=== PATIENT | female | born 1960 | race Caucasian/White ===

== ENCOUNTER 2020-04-14 12:59 | Inpatient (IN) | payer OTHER, SELFPAY ==
[2020-04-14] VITALS (20 sets, daily range): BP systolic 102–135; BP diastolic 67–91; PULSE 63–88; RESP 16–94; TEMP 36.3–37.1; O2SAT 20–100; BMI 32.9
--- NOTE | 2020-04-14 13:10 | ECG_ITS ---
Measurements Intervals [place] Rate: 67 P: 49 [place]: 166 QRS: 26 QRSD: 98 T: 72 QT: 395 QTc: 418 Interpretive Statements SINUS RHYTHM POSSIBLE LEFT ATRIAL ENLARGEMENT INFERIOR ST ELEVATION MYOCARDIAL INFARCT- ACUTE BASELINE WANDER- V1 ABNORMAL ECG Electronically Signed On 04-14-2020 13:58:08 CDT by Yoshi Fowler D.O.
--- NOTE | 2020-04-14 13:10 | ED.CHESTPAIN ---
HPI - Chest Pain General Chief Complaint: Chest Pain Stated Complaint: chest pain Time Seen by Provider: 04/14/20 13:09 Source: RN notes reviewed History of Present Illness HPI narrative: Patient presents emergency department from home for chest pain. Patient states pain began last night. Pain is located midsternal chest and does not radiate described as a pressure. Associate with shortness of breath. Denies any fevers or chills abdominal pain nausea vomiting or any other symptoms. Related Data Allergies Allergy/AdvReac Type Severity Reaction Status Date / Time aspirin [From Norgesic] Allergy Rash Verified 04/14/20 13:20 azithromycin Allergy Rash Verified 04/14/20 13:20 caffeine [From Norgesic] Allergy Rash Verified 04/14/20 13:20 orphenadrine [From Norgesic] Allergy Rash Verified 04/14/20 13:20 vancomycin Allergy Rash Verified 04/14/20 13:20 Review of Systems Review of Systems: Narrative: Gen.: Denies fevers or chills ENT: Denies congestion Respiratory: Denies shortness of breath or cough CV: See HPI GI: Denies abdominal pain nausea, emesis or diarrhea Musculoskeletal: Denies back pain or muscle pain Neuro: Denies numbness, tingling, weakness or focal weakness Skin: Denies rash Except as documented, all other systems reviewed and negative PMFSH Past Medical History Medical History (Updated 04/14/20 @ 13:40 by Luis Vazquez DO) Femoral-popliteal bypass graft occlusion, right Hypercholesterolemia Social History Social History (Updated 04/14/20 @ 13:16 by Luis Vazquez DO) Tobacco type: e-cigarettes/vaping Exam Narrative: Exam Narrative: APPEARANCE: No acute distress, nontoxic, resting in bed EYES: EOMI HEENT: Normocephalic, atraumatic, OMM RESPIRATORY: No respiratory distress Clear to auscultation bilaterally with no rhonchi wheezing or rales. CARDIOVASCULAR: Regular rate and rhythm without murmurs rubs or gallops. ABDOMINAL: Soft, nontender, nondistended, no rebound or guarding MUSCULOSKELETAl: Moves all extremities. No clubbing, cyanosis or edema. NEURO: Awake and alert. Following commands, speech normal, no focal deficits SKIN:: Warm, dry. No rashes lesions or abrasions PSYCHIATRIC: Normal affect/mood, Course Course Emergency Course: Discussed with Dr. jaquez presentation work-up. Plan for Hot Wire Glass Tube Cutter at this time. Request patient be given Brilinta 180 mg at this time Hot Wire Glass Tube Cutter team present as well as SUPERVISOR [employer] PASTE dominique lazcano Discussed with patient and family signs of acute DE need for Hot Wire Glass Tube Cutter in agreement at this time Vital Signs Vital signs: Vital Signs Temperature 98.7 F 04/14/20 13:05 Pulse Rate 88 04/14/20 13:05 Respiratory Rate 16 04/14/20 13:05 Pulse Oximetry 100 04/14/20 13:05 Temperature 98.7 F 04/14/20 13:05 Pulse Rate 88 04/14/20 13:05 Respiratory Rate 16 04/14/20 13:05 Pulse Oximetry 100 04/14/20 13:05 MDM - Chest Pain Lab Data Result diagrams: 04/14/20 13:15 04/14/20 13:15 ECG Data EKG #1: Interpretation: Sinus rhythm 67, SC is normal, axis normal, ST elevation in leads II, III and aVF with depression V1 V2 and lead I consistent with STEMI Critical Care Time Critical Care Time Critical Care Time: Yes Total Critical Care Time: 35 Discharge Plan Discharge Clinical Impression: ST elevation (STEMI) myocardial infarction Patient Disposition: Still a Patient Condition: Serious Interventions: Discharge Disposition Last Done: 04/14/20 13:33 IV Stop Time Documented Last Done: 04/14/20 13:33 Discharge Date/Time: 04/14/20 13:34
[2020-04-14 13:25] LABS: Basophils Absolute Auto 0.1 K/mm3 (0.0-0.1); Basophils Percent Auto 0.7 % (0.2-1.2); Eosinophils Absolute Auto 0.1 K/mm3 (0-0.3); Eosinophils Percent Auto 0.7 % (0-4.4); Hematocrit 41.4 % (37.0-47.0); Hemoglobin 13.7 g/dL (12.0-15.0); Immature Granulocyte Absolute 0.08 K/mm3 (0.00-0.031); Immature Granulocyte Percent A 0.5 % (0-0.5); Lymphocytes Absolute Auto 2.65 K/mm3 (0.9-3.2); Lymphocytes Percent Auto 16.1 % (18.3-44.2); Mean Corpuscular HGB Conc 33.1 g/dl (32-36); Mean Corpuscular Hemoglobin 29.5 pg (26-34); Mean Corpuscular Volume 89.2 fl (80-100); Mean Platelet Volume 11.5 fl (7.4-10.4); Monocytes Percent Auto 6.1 % (2.6-8.5); Neutrophils Absolute Auto 12.5 K/mm3 (1.3-6.7); Neutrophils Percent Auto 75.9 % (45.5-73.1); Platelet Count Result 306 k/mm3 (150-375); Red Blood Count 4.64 M/mm3 (4.2-5.4); White Blood Count 16.5 K/mm3 (4.5-10.0)
[2020-04-14] MEDS: TICAGRELOR 90 MG TABLET 180 MG (13:29)
--- NOTE | 2020-04-14 13:29 | PC.NURSE ---
STEMI activated and Cath team arrived. Pt given 325mg aspirin and 180mg brilinta per Dr gerard verbal orders. Left groin shaved, pads placed on pts chest. [facility]. VSS on ER departure.
[2020-04-14 13:36] LABS: INR 1.1; Partial Thromboplastin Time 29.5 SECONDS (22.3-36.8); Prothrombin Time 13.5 Seconds (11.1-14.7)
[2020-04-14 13:38] LABS: Alanine Aminotransferase 20 U/L (4-35); Albumin Level 4.6 g/dL (3.5-5.1); Alkaline Phosphatase 137 U/L (38-126); Aspartate Amino Transferase 86 U/L (14-36); Bilirubin,Total 0.3 mg/dL (0.2-1.3); Blood Urea Nitrogen 17 mg/dL (7-17); Calcium 9.4 mg/dL (8.4-10.2); Carbon Dioxide 23 mmol/L (22-30); Chloride 101 mmol/L (98-107); Cholesterol 193 mg/dL (0-200); Estimated CRCL calculation 90 ml/min; Estimated Glomerular Filt Rate > 60; Glucose 299 mg/dL (65-105); HDL Direct 37 mg/dL; Sodium 136 mmol/L (137-145); Triglycerides 298 mg/dL (<150)
[2020-04-14 13:49] LABS: LDL Cholesterol Direct 120 mg/dL
--- NOTE | 2020-04-14 14:39 | WPDCARDPROC ---
Cardiac Cath Procedure Note Date of procedure:: 04/14/20 Performing physician:: Alec Cruz MD Procedure Procedure note:: EMERGENT CARDIAC CATHETERIZATION AND PRIMARY PERCUTANEOUS CORONARY INTERVENTION REPORT DATE OF PROCEDURE: 04/14/2020 INDICATION FOR PROCEDURE: acute coronary syndrome -inferior ST-elevation [place] BRIEF CLINICAL HISTORY: 59-year-old female with peripheral artery disease with history of right fem-pop bypass surgery; diabetes mellitus on insulin, tobacco abuse. Patient was brought to [facility] emergency room with complaints of substernal chest discomfort that started about 15 hours prior to arrival. Patient had constant discomfort overnight. Her EKG showed sinus rhythm, ST elevation in the inferior leads with ST depression in leads V1 and V2. Cardiac catheterization lab was activated for primary PCI. She was given aspirin and loading dose of ticagrelor 180 mg in the emergency room. Benefits and risks of the procedure were discussed with the patient in depth, and informed consent was obtained prior to the procedure. Risks of the procedure include but are not limited to vascular complications including groin hematoma, retroperitoneal bleed, vessel perforation; periprocedural [place], cardiac arrhythmias, stroke, contrast induced nephropathy, and . After discussing all the benefits, risks and alternatives, patient was willing to proceed with the procedure. PROCEDURES PERFORMED: 1. Left heart catheterization- Selective left and right coronary angiogram; left ventriculogram and hemodynamic assessment 2. Percutaneous coronary intervention- Balloon angioplasty and stenting of totally occluded distal RCA using 3.5 x 24 mm everolimus eluting stent with good angiographic results and oriental orthodox of SANJUANA 3 flow. 3. Moderate sedation-CPT code 86977 MODERATE SEDATION: Midazolam 1 mg; fentanyl 25 mcg. Start time 1338 , Stop time 1427 ; Total [id number] time 49 minutes; Mary willard RN was trained observer for moderate sedation. ACCESS SITE: Left common femoral artery PROCEDURE NOTE: After obtaining informed consent, patient was brought to catheterization lab and prepped and draped in a usual sterile manner. After local anesthesia with lidocaine, left common femoral artery access was taken with micropuncture needle followed by insertion of a 5 Martiniquais sheath. there was difficulty in getting the access in the left common femoral artery due to the calcification . A radial sheath dilator was advanced with difficulty, followed by insertion of the 5 Martiniquais radial sheath, which was then upgraded to the 6 Martiniquais sheath over a 035 stiff wire. Selective left and right coronary angiogram was performed using 5 Martiniquais JL4 diagnostic and JR4 Guide catheters respectively. Orthogonal views were taken. After completion of primary PCI, a 5 Martiniquais pigtail catheter was advanced in the LV cavity and was flushed with normal saline. LV pressure measurement was performed. After this, left ventriculogram was performed. The catheter was flushed again, and gradient across the aortic valve was measured on the pullback of the catheter. The left common femoral artery access sheath was secured in place with sutures which were taken out in the holding area 2 hours after discontinuation of bivalirudin. The angiographic findings and details of intervention are given below. FINDINGS: LEFT MAIN CORONARY: The left main coronary artery is medium caliber, long vessel. There is mild diffuse narrowing in the mid-distal segment. The vessel bifurcates into LAD and left circumflex branches. LEFT ANTERIOR DESCENDING ARTERY: The LAD is a medium caliber vessel with diffuse calcification in the proximal segment; becomes tortuous diffusely calcified vessel in the mid segment and distal segment, and reaches the LV apex. There is about 50-60% stenosis in the mid segment just distal to the diagonal branch, and another high-grade about 70-80% focal stenosis in the m
--- NOTE | 2020-04-14 14:56 | PM.IMHP ---
H&P: HPI History of Present Illness Chief complaint: chest pain Narrative: Date of service- 04/14/2020 chief complaint: Chest pain for approximately 15 hours HPI: Sintia Montanez is a 59 year old female with peripheral artery disease with history of right fem-pop bypass surgery; diabetes mellitus on insulin, tobacco abuse. Patient was brought to [facility] emergency room with complaints of substernal chest discomfort that started about 15 hours prior to arrival . She described her chest pain as pressure-like sensation across the chest which was constant overnight. She denied associated symptoms including shortness of breath, palpitation, dizziness or syncope. Patient denies any prior cardiac history including clinical CT, however, she does have history of peripheral artery disease and history of right lower extremity vascular intervention including surgical revascularization. Her EKG on presentation which I personally evaluated showed sinus rhythm, ST elevation in the inferior leads with ST depression in leads V1 and V2. Cardiac catheterization lab was activated for primary PCI. She was given aspirin and loading dose of ticagrelor 180 mg in the emergency room. Emergent cardiac catheterization showed CAD- 100% thrombotic occlusion distal RCA ( infarct-related vessel); about 80% stenosis mid LAD; 30-40% stenosis mid LCX; LVEF about 60% with inferior severe hypokinesis to akinesis; LVEDP 15 mmHg. Patient underwent Primary PCI -SUGAR REFINER/ stenting of distal RCA total occlusion using a 3.5 x 24 mm [employer] Promus everolimus eluting stent with restorationist of SAN[place]NA 3 flow. She was chest pain-free after completion of intervention. Review of Systems Constitutional: Constitutional: Denies chills, Denies fatigue, Denies fever(s) and Denies headache(s) Eyes: Eyes: Reports as per HPI, Denies change in vision, Denies loss of vision and Denies eye pain ENT: Reports as per HPI, Reports Normal hearing present, Denies headache(s), Denies lip swelling, Denies epistaxis and Denies sore throat Cardiovascular: Cardiovascular: Reports as per HPI, Reports chest pain, Denies syncope, Denies irregular heart rhythm, Denies lightheadedness and Denies dyspnea Respiratory: Respiratory: Reports as per HPI, Denies cough, Denies dyspnea and Denies wheezing Gastrointestinal: Gastrointestinal: Reports as per HPI, Denies abdominal pain, Denies melena, Denies nausea and Denies vomiting Genitourinary: Genitourinary: Reports as per HPI Musculoskeletal: Musculoskeletal: Reports as per HPI, Denies myalgias, Denies muscle cramps and Denies muscle weakness Integumentary/Breasts: Skin/Breast: Reports as per HPI, Denies pruritus and Denies rash Neurologic: Reports as per HPI, Reports Normal hearing present, Denies behavioral changes, Denies syncope, Denies headache(s) and Denies loss of vision Psychiatric: Psychiatric: Reports as per HPI, Denies anxiety, Denies behavioral changes and Denies depression Endocrine: Endocrine: Reports as per HPI, Denies fatigue, Denies polydipsia and Denies polyuria Hematologic/Lymphatic: Hematologic/Lymphatic: Reports as per HPI, Denies easy bleeding and Denies easy bruising Allergic/Immunologic: Allergic/Immunologic: Reports as per HPI, Denies lip swelling and Denies wheezing PMFSH Past Medical History Medical History Femoral-popliteal bypass graft occlusion, right Hypercholesterolemia Surgical History Surgical History (Updated 04/14/20 @ 15:01 by Alec Cruz MD) H/O section History of cholecystectomy Family History Family History Mother Heart disease atrial fibrillation Social History Social History Tobacco type: e-cigarettes/vaping Alcohol intake: current Substance use: never Meds Home Medications and Allergies Allergies Allergy/Ad
[2020-04-14] MEDS: ONDANSETRON INJ 4 MG/2 ML VIAL 2 MG IV PUSH (15:47)
--- NOTE | 2020-04-14 16:15 | WPDCNINT ---
Assessment and Plan Assessment and plan (1) ST elevation (STEMI) myocardial infarction: Code(s): I21.3 - ST elevation (STEMI) myocardial infarction of unspecified site Status: Acute Assessment and Plan: Inferior STEMI S/P Primary PCI -AIRSET CASTER/ stenting of distal RCA total occlusion using a 3.5 x 24 mm [place] [employer] Promus everolimus eluting stent Monitor in ICU Dual antiplatelet therapy with aspirin and ticagrelor; Lipitor, metoprolol Plan to remove sheath later in the evening (2) Hypercholesterolemia: Code(s): E78.00 - Pure hypercholesterolemia, unspecified Status: Acute Assessment and Plan: Lipitor (3) Diabetes mellitus: Code(s): E11.9 - Type 2 diabetes mellitus without complications Status: Acute Assessment and Plan: Start sliding scale insulin Resume home Lantus (4) GERD (gastroesophageal reflux disease): Code(s): K21.9 - Gastro-esophageal reflux disease without esophagitis Status: Acute Assessment and Plan: Pepcid (5) Nausea: Code(s): R11.0 - Nausea Status: Acute Assessment and Plan: PRN Zofran DVT prophylaxis -Eliquis will be resumed as per cardiology. 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 was brought to [facility] emergency room with complaints of substernal chest discomfort that started about 15 hours prior to arrival . Her EKG on presentation ST elevation in the inferior leads with ST depression in leads V1 and V2. Code STEMI was called. She was given aspirin and loading dose of ticagrelor 180 mg in the emergency room. Emergent cardiac catheterization showed CAD- 100% thrombotic occlusion distal RCA ( infarct-related vessel); about 80% stenosis mid LAD; 30-40% stenosis mid LCX; LVEF about 60% with inferior severe hypokinesis to akinesis; LVEDP 15 mmHg. Patient underwent Primary PCI -AIRSET CASTER/ stenting of distal RCA total occlusion drug eluting stent with yazidi of SANJUANA 3 flow. She was chest pain-free after completion of intervention. Postprocedure patient was admitted to ICU for further management. Patient told me that pain started last night, 3 to 4/10 severe, pressure, located anterior chest diffuse, no radiation, felt like heartburn, no aggravating or relieving factors. Pain now has resolved completely after the procedure. Pain was associated with shortness of breath and did not resolve with Pepcid She denies any sick contacts, cough fever nausea vomiting or diarrhea. No change in sense of taste or smell. 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 Only other complaint is nausea with no vomiting Review of Systems Review of Systems: All systems reviewed & are unremarkable except as noted in HPI and below (HPI) PMFSH Past Medical History Medical History Femoral-popliteal bypass graft occlusion, right Hypercholesterolemia Surgical History Surgical History H/O section History of cholecystectomy Family History Family History Mother Heart disease atrial fibrillation Social History Social History Tobacco type: e-cigarettes/vaping Alcohol intake: current Substance use: never Meds Home Medications and Allergies Home Medications Medication Instructions Recorded Confirmed Type apixaban [Eliquis] 5 mg PO BID 04/14/20 04/14/20 History atorvastatin 80 mg PO HS 04/14/20 04/14/20 History dulaglutide [Trulicity] 1.5 mg SUBCUT WEEKLY 04/14/20
[2020-04-14 16:44] LABS: HIV 1/2 Ab P24 Ag Result Negative (Negative)
[2020-04-14 16:49] LABS: Hepatitis B Surface Antigen Negative (Negative)
[2020-04-14 16:50] LABS: Partial Thromboplastin Time 47.9 SECONDS (22.3-36.8)
[2020-04-14 18:04] LABS: Glucose Point of Care 240 (65-105)
[2020-04-14] MEDS: INSULIN ASPART (*BKC) 100 UNITS/ML SUB-Q (18:06)
[2020-04-14] MEDS: SODIUM CHLORIDE 0.9% IV 1,000 ML 125 ML IV CONT (18:07)
[2020-04-14] MEDS: SODIUM CHLORIDE 0.9% IV 250 ML 75 ML IV CONT (19:00)
--- NOTE | 2020-04-14 19:03 | PC.NURSE ---
This patient, Sintia Montanez, was admitted to IMU status, and placed in Intensive Care Unit-10 at 1452. Patient/family oriented to hospital policies and general routines including ID bracelet, bed and alarms, visiting hours, pain management, procedures, bathroom and other care routines, personal items, smoking policy, room service/diet, and visiting hours. Valuables list has been completed. Information on how to activate the Rapid Response Team has been discussed. Patient/Family are encouraged to report perceived risks to care and to ask questions if they do not understand what they are told or what they should do.
--- NOTE | 2020-04-14 19:03 | PC.NURSE ---
Sheath removed from left groin @ 1818. Pressure was help for 22 minutes. Site is dry/intact, no evidence of hematoma, pulse to left foot is palpable.
--- NOTE | 2020-04-14 19:18 | PC.NURSE ---
Patient arrived to ICU 10 @ 1452. Site was observed per protocol and remains dry/intact, no s/s hematoma, and left pedal pulse remains palpable.
[2020-04-14 20:07] LABS: Troponin I > 80.000 ng/mL (0.000-0.034)
[2020-04-14] MEDS: METOPROLOL TARTRATE 12.5 MG TABLET PO (22:58)
[2020-04-14] MEDS: FAMOTIDINE 20 MG TABLET PO (22:58)
[2020-04-14] MEDS: TICAGRELOR 90 MG TABLET PO (22:59)
[2020-04-14 23:05] LABS: Glucose Point of Care 226 (65-105)
[2020-04-15] VITALS (17 sets, daily range): BP systolic 89–114; BP diastolic 52–74; PULSE 66–75; RESP 12–24; TEMP 36.2–37.3; O2SAT 95–100
[2020-04-15] MEDS: NITROGLYCERIN SL 0.4 MG TABLET (01:25)
[2020-04-15] MEDS: NITROGLYCERIN OINTMENT 1 INCH DOSE TRANSDERM (01:30)
[2020-04-15 04:47] LABS: Blood Urea Nitrogen 15 mg/dL (7-17); Calcium 8.6 mg/dL (8.4-10.2); Carbon Dioxide 25 mmol/L (22-30); Chloride 103 mmol/L (98-107); Estimated CRCL calculation 108 ml/min; Estimated Glomerular Filt Rate > 60; Glucose 249 mg/dL (65-105); Potassium 4.1 mmol/L (3.4-5.0); Sodium 133 mmol/L (137-145)
[2020-04-15 07:57] LABS: Basophils Absolute Auto 0.1 K/mm3 (0.0-0.1); Basophils Percent Auto 0.5 % (0.2-1.2); Eosinophils Absolute Auto 0.2 K/mm3 (0-0.3); Eosinophils Percent Auto 1.6 % (0-4.4); Hematocrit 35.3 % (37.0-47.0); Hemoglobin 11.7 g/dL (12.0-15.0); Immature Granulocyte Absolute 0.07 K/mm3 (0.00-0.031); Immature Granulocyte Percent A 0.5 % (0-0.5); Lymphocytes Absolute Auto 2.97 K/mm3 (0.9-3.2); Lymphocytes Percent Auto 20.2 % (18.3-44.2); Mean Corpuscular HGB Conc 33.1 g/dl (32-36); Mean Corpuscular Hemoglobin 29.3 pg (26-34); Mean Corpuscular Volume 88.3 fl (80-100); Mean Platelet Volume 11.2 fl (7.4-10.4); Monocytes Absolute Auto 1.3 K/mm3 (0.1-0.6); Monocytes Percent Auto 9.1 % (2.6-8.5); Neutrophils Absolute Auto 10.1 K/mm3 (1.3-6.7); Neutrophils Percent Auto 68.1 % (45.5-73.1); Platelet Count Result 245 k/mm3 (150-375); Red Cell Distribution Width 12.8 % (11.5-14.5); White Blood Count 14.7 K/mm3 (4.5-10.0)
--- NOTE | 2020-04-15 08:00 | ECG_ITS ---
Measurements Intervals [place] Rate: 71 P: 44 DC: 164 QRS: 5 QRSD: 96 T: 0 QT: 391 QTc: 428 Interpretive Statements SINUS RHYTHM LOW QRS VOLTAGE IN PRECORDIAL LEADS INFERIOR INFARCT- PROBABLY RECENT ABNORMAL ECG Electronically Signed On 04-15-2020 11:55:51 CDT by Yoshi Fowler D.O.
--- NOTE | 2020-04-15 08:15 | WPDINTPN ---
Progress Note: A&P Assessment and Plan (1) ST elevation (STEMI) myocardial infarction: Code(s): I21.3 - ST elevation (STEMI) myocardial infarction of unspecified site Status: Acute Assessment and Plan: Inferior STEMI S/P Primary PCI -TAKE AWAY ATTENDANT/ stenting of distal RCA total occlusion using a 3.5 x 24 mm [place] [employer] Promus everolimus eluting stent Recurrent chest pain last night and EKG was unchanged from admission Patient is pain-free now. Continue nitroglycerin p.r.n. Will repeat EKG this morning Continue Dual antiplatelet therapy with aspirin and ticagrelor; Lipitor, metoprolol (2) Hypercholesterolemia: Code(s): E78.00 - Pure hypercholesterolemia, unspecified Status: Acute Assessment and Plan: Lipitor (3) Diabetes mellitus: Code(s): E11.9 - Type 2 diabetes mellitus without complications Status: Acute Assessment and Plan: Start sliding scale insulin Continue home Lantus (4) GERD (gastroesophageal reflux disease): Code(s): K21.9 - Gastro-esophageal reflux disease without esophagitis Status: Acute Assessment and Plan: Pepcid (5) Nausea: Code(s): R11.0 - Nausea Status: Acute Assessment and Plan: Appears to have resolved. PRN Zofran DVT prophylaxis -Eliquis will be resumed today if okay with cardiology. SCDs for now Code Status - Full Code Subjective Date/time seen: 04/15/20 0815 Patient feels better this morning. She had an episode of pain in her back last night around 11:00 p.m.. It was 2 to 3/10 severe, different from her chest pain, it was relieved by nitro pill. EKG was done at that time. Patient denies any pain at this point. Does feel short of breath when she takes a deep breath but not at rest. No other complaint at this time Denies fever chills chest pain cough abdominal pain nausea vomiting diarrhea headache Review of Systems Review of Systems: All systems reviewed & are unremarkable except as noted in HPI and below (HPI) Exam Narrative: Exam Narrative: General: Pt is alert awake and in NAD Lungs/Chest: Trachea central Clear BS B/L, No crackles or wheezing. Cardiac: RRR. Normal S1 S2. No murmurs Circulation: Pedal pulses are decreased bilaterally but present and symmetrical. Left femoral sheath has been removed, no hematoma or swelling noticed. She does feel some discomfort on deep palpation of that site Abdomen: Normal bowel sounds.. Soft. NT. ND. Extremities: No clubbing, cyanosis or edema. Warm : [place] in place Neurologic: Follows commands. Moves all 4 extremities PERRL Skin: No Rash scar from past femoral bypass in the right groin Objective Data Vital Signs Vital Signs: Vital Signs - 24 hr 04/14/20 13:05 04/14/20 14:52 04/14/20 15:00 Temperature 37.1 C 36.3 C L Pulse Rate 88 68 68 Respiratory Rate 16 94 H 18 Blood Pressure 121/75 112/71 Pulse Oximetry 100 20 L 97 04/14/20 15:15 04/14/20 15:30 04/14/20 15:45 Temperature Pulse Rate 69 67 68 Respiratory Rate 20 18 18 Blood Pressure 114/72 110/72 116/70 Pulse Oximetry 95 95 93 04/14/20 16:00 04/14/20 16:15 04/14/20 16:45 Temperature Pulse Rate 67 68 66 Respiratory Rate 20 21 H 18 Blood Pressure 120/91 H 135/78 123/70 Pulse Oximetry 97 92 94 04/14/20 17:45 04/14/20 18:00 04/14/20 18:45 Temperature Pulse Rate 69 66 68 Respiratory Rate 18 16 19 Blood Pressure 121/70 124/71 122/73 Pulse Oximetry 96 97 96 04/14/20 19:00 04/14/20 19:45 04/14/20 20:00 Temperature 36.7 C Pulse Rate 68 65 71 Respiratory Rate 18 21 H 17 Blood Pressure 107/84 113/73 121/67 Pulse Oximetry 97 93 100 04/14/20 20:30 04/14/20 21:00 04/14/20 22:00 Temperature Pulse Rate 71 68 72 Respiratory Rate 17 20 16 Blood Pressure 102/68 122/75 110/68 Pulse Oximetry 97 100 04/14/20 22:58 04/14/20 23:00 04/15/20 00:00 Temperature 36.7 C Pulse Rate 70 70 70 Respiratory Rate 20 22 H Blood Pressure 108/69 103/69 Pulse O
[2020-04-15] MEDS: INSULIN GLARGINE (*BKC) 100 UNITS/ML 40 UNITS SUB-Q (08:35)
[2020-04-15 08:36] LABS: Glucose Point of Care 216 (65-105)
[2020-04-15] MEDS: INSULIN ASPART (*BKC) 100 UNITS/ML SUB-Q ×2 (08:37→12:24)
--- NOTE | 2020-04-15 09:00 | ECHO_ITS ---
Patient Info Name: Sintia Montanez Age: 59 years : 1960 Gender: Female Ht: 68 in Wt: 216 lbs BSA: 2.20 m2 HR: 66 bpm BP: 101 / 64 mmHg Heart Rhythm: Sinus Rhythm Technical Quality: Good Exam Date: 04/15/2020 10:40 AM Exam Location: [facility] Patient Status: Inpatient Admit Date: 04/14/2020 Staff Ordering Physician: Nel Hemphill APRN Bi Tri Operator: Hermilo Posey, CLAUDIACS, RT Attending Provider: Alec Cruz MD Referring Physician: Joby PEARSON; Exam Type: CA echo doppler color flow Study Info Indications I21.3 - ST elevation (STEMI) myocardial infarction of unspecified site Complete two-dimensional, color flow and Doppler transthoracic echocardiogram is performed. Summary 1. Normal left ventricular size with mild concentric left ventricular hypertrophy. The overall left ventricular function is good with an estimated ejection fraction 55-60%. However the basal inferior septal segment appears akinetic. Diastolic dysfunction, grade 1, is present. The average global longitudinal strain is-60% which is mildly low suggesting a degree of systolic dysfunction. 2. There is mild mitral valve regurgitation. 3. No pulmonary hypertension, estimated pulmonary arterial systolic pressure is 28 mmHg. 4. Normal sinus rhythm. Left Ventricle Left ventricular chamber dimension is normal. Left ventricular systolic function is normal, estimated at 55-60%. There is mildly increased left ventricular wall thickness. Left ventricular septal wall motion is normal. The left ventricular diastolic function is grade I diastolic dysfunction. Global longitudinal strain is mildly elevated at 16 %. Right Ventricle Right ventricular chamber dimension is normal. Right ventricular systolic function is normal. Left Atria Left atrial chamber dimension is normal. Right Atria Right atrial chamber dimension is normal. Aortic Valve The aortic valve is trileaflet. There is no aortic valve sclerosis. There is no aortic valve stenosis. There is no aortic valve regurgitation. Pulmonic Valve The pulmonic valve is normal. There is no pulmonic valve stenosis. There is no pulmonic regurgitation. Mitral Valve The mitral valve has normal leaflets. There is no mitral valve stenosis. There is mild mitral valve regurgitation. Tricuspid Valve The tricuspid valve leaflets are normal. There is no significant tricuspid valve stenosis. There is trace tricuspid valve regurgitation. No pulmonary hypertension, estimated pulmonary arterial systolic pressure is 28 mmHg. Pericardium/Pleural The pericardium appears normal. There is no pericardial effusion. Inferior Vena Cava Dilated inferior vena cava with >50% collapse upon inspiration consistent with Empty right atrial pressure, Empty. Aorta The aortic root size at the sinus of Valsalva is normal. The prox ascending aorta size is normal. Left Ventricular Outflow Tract Name Value Normal LVOT 2D LVOT Diameter 2.1 cm LVOT Doppler LVOT Peak Gradient 2 mmHg LVOT Mean Gradient 1 mmHg LVOT VTI
[2020-04-15] MEDS: ATORVASTATIN 40 MG TABLET 80 MG PO (09:17)
[2020-04-15] MEDS: ASPIRIN 81 MG ENTERIC TABLET PO (09:17)
[2020-04-15] MEDS: DULoxetine HCL 60 MG CAPSULE.DR PO (09:18)
[2020-04-15] MEDS: lisinopriL 10 MG TABLET PO (09:18)
[2020-04-15] MEDS: FAMOTIDINE 20 MG TABLET PO ×2 (09:18→22:03)
[2020-04-15] MEDS: METOPROLOL TARTRATE 12.5 MG TABLET PO ×2 (09:19→22:03)
[2020-04-15] MEDS: TICAGRELOR 90 MG TABLET PO ×2 (09:19→22:03)
[2020-04-15 12:24] LABS: Glucose Point of Care 227 (65-105)
--- NOTE | 2020-04-15 14:21 | PM.PNCARD ---
Progress Note: A&P Assessment and Plan (1) Femoral-popliteal bypass graft occlusion, right: Code(s): T82.898A - Other specified complication of vascular prosthetic devices, implants and grafts, initial encounter Status: Acute (2) ST elevation (STEMI) myocardial infarction: Code(s): I21.3 - ST elevation (STEMI) myocardial infarction of unspecified site Status: Acute Assessment and Plan: Peripheral artery disease with history of right fem-pop bypass surgery; diabetes mellitus on insulin, tobacco abuse. Presented with 15 hour history of chest pain, found to have inferior ST-elevation [place]. On coronary angiogram, she was found to have totally occluded distal RCA which is infarct-related vessel; high-grade stenosis in the mid RCA, LVEF about 60% with inferior wall severe hypokinesis to akinesis. She underwent primary PCI/TAMIKA x1 distal RCA with rastafarian of flow by Dr Cruz on 04/14/2020. She had chest pain overnight. Nitroglycerin paste was applied and she was pain-free. EKGs were unchanged. Troponin is trending down this morning. Peak was greater than 80. Continue dual antiplatelet therapy with aspirin and ticagrelor; beta-rebecca, ARB (has cough with lisinopril) and high intensity statin. Will discontinue lisinopril and start losartan 25 mg daily. Risk factor modification including complete smoking cessation. States that she vapes with no nicotine. Stage intervention on mid LAD in near future. Timing will be discussed with Dr Cruz. ECHO:Normal left ventricular size with mild concentric left ventricular hypertrophy. The overall left ventricular function is good with an estimated ejection fraction 55-60%. However the basal inferior septal segment appears akinetic. Diastolic dysfunction, grade 1, is present. The average global longitudinal strain is-60% which is mildly low suggesting a degree of systolic dysfunction. Mild mitral valve regurgitation. No pulmonary hypertension, estimated pulmonary arterial systolic pressure is 28 mmHg. Transfer to IMU. Increase activity. BMP in the morning. Also check EKG. Subjective Date/time seen: 04/15/20 15:55 Interval history: Follow-up for: Inferior ST-elevation myocardial infarction 04/14/2020 with drug-eluting stent to the distal right coronary artery, residual 80% lesion in the LAD, preserved ejection fraction, peripheral artery disease with history of right fem-pop bypass surgery; diabetes mellitus on insulin, tobacco abuse Date of service: 04/15/2020 Subjective: No further chest discomfort. Denied shortness of breath or lightheadedness. Left groin site is tender. Review of Systems Constitutional: Constitutional: Denies chills, Denies fatigue, Denies fever(s) and Denies headache(s) Eyes: Eyes: Denies change in vision, Denies loss of vision and Denies eye pain ENT: Reports Normal hearing present, Denies headache(s), Denies lip swelling, Denies epistaxis and Denies sore throat Cardiovascular: Cardiovascular: Denies chest pain, Denies syncope, Denies irregular heart rhythm, Denies lightheadedness and Denies dyspnea Respiratory: Respiratory: Denies cough, Denies dyspnea and Denies wheezing Gastrointestinal: Gastrointestinal: Denies abdominal pain, Denies melena, Denies nausea and Denies vomiting Genitourinary: Genitourinary: Denies hematuria Musculoskeletal: Musculoskeletal: Denies myalgias, Denies muscle cramps and Denies muscle weakness Integumentary/Breasts: Skin/Breast: Denies pruritus and Denies rash Neurologic: Reports Normal hearing present, Denies behavioral changes, Denies syncope, Denies headache(s) and Denies loss of vision Psychiatric: Psychiatric: Denies anxiety, Denies behavioral changes and Denies depression Endocrine: Endocrine: Denies fatigue, Denies polydipsia and Denies polyuria Hematologic/Lymphatic: Hematologic/Lymphatic: Denies easy bleeding and Denies easy bruising Allergic/Immunologic: Allergic/Immuno
--- NOTE | 2020-04-15 15:03 | PC.NURSE ---
This patient, Sintia Montanez, was transferred to [[facility] ] on 04/15/20 at 1445. Personal belongings sent with patient. Belongings list checked and signed with receiving [ lynne, imu with purse and belongings bag, phone and protection officer]. Report given to [ aquiles guadarrama rn]. Appropriate documentation sent with patient.
[2020-04-15 16:56] LABS: Glucose Point of Care 197 (65-105)
[2020-04-16] VITALS (10 sets, daily range): BP systolic 98–102; BP diastolic 51–66; PULSE 65–99; RESP 16–20; TEMP 35.9–36.4; O2SAT 100
[2020-04-16 05:26] LABS: Blood Urea Nitrogen 17 mg/dL (7-17); Calcium 8.6 mg/dL (8.4-10.2); Carbon Dioxide 25 mmol/L (22-30); Chloride 106 mmol/L (98-107); Estimated CRCL calculation 91 ml/min; Estimated Glomerular Filt Rate > 60; Glucose 172 mg/dL (65-105); Potassium 3.9 mmol/L (3.4-5.0); Sodium 137 mmol/L (137-145)
--- NOTE | 2020-04-16 08:00 | ECG_ITS ---
Measurements Intervals [place] Rate: 73 P: 49 ME: 168 QRS: 18 QRSD: 98 T: -43 QT: 397 QTc: 440 Interpretive Statements SINUS RHYTHM LOW QRS VOLTAGE IN PRECORDIAL LEADS BORDERLINE R WAVE PROGRESSION, ANTERIOR LEADS INFERIOR INFARCT, PROABLY RECENT ABNORMAL ECG Electronically Signed On 04-16-2020 11:11:02 CDT by Yoshi Fowler D.O.
[2020-04-16] MEDS: ASPIRIN 81 MG ENTERIC TABLET PO (09:30)
[2020-04-16] MEDS: FAMOTIDINE 20 MG TABLET PO (09:31)
[2020-04-16] MEDS: ATORVASTATIN 40 MG TABLET 80 MG PO (09:31)
[2020-04-16] MEDS: DULoxetine HCL 60 MG CAPSULE.DR PO (09:31)
[2020-04-16] MEDS: TICAGRELOR 90 MG TABLET PO (09:33)
[2020-04-16] MEDS: METOPROLOL TARTRATE 12.5 MG TABLET PO (09:33)
[2020-04-16] MEDS: INSULIN GLARGINE (*BKC) 100 UNITS/ML 40 UNITS SUB-Q (09:36)
--- NOTE | 2020-04-16 12:55 | PM.DS ---
DS: Admitting Diagnosis Admitting Diagnosis Admitting Diagnosis: STEMI DS: Discharge Diagnosis Discharge Diagnosis (1) ST elevation (STEMI) myocardial infarction: Qualifiers: Involved coronary artery: right coronary artery Qualified Code(s): I21.11 - ST elevation (STEMI) myocardial infarction involving right coronary artery Code(s): I21.3 - ST elevation (STEMI) myocardial infarction of unspecified site Status: Acute Assessment and Plan: Presented with 15 hour history of chest pain, found to have inferior ST-elevation [place]. On coronary angiogram, she was found to have totally occluded distal RCA which is infarct-related vessel; high-grade stenosis in the mid RCA, LVEF about 60% with inferior wall severe hypokinesis to akinesis. She underwent primary PCI/TAMIKA x1 distal RCA with voodoo of flow by Dr Cruz on 04/14/2020. No further chest pain. Vital signs are stable. She was ambulating without difficulty. radiation monitor revealed no arrhythmias. She has an occlusion in her LAD which will need to be addressed. Dr Cruz was contacted. He would like to do this at [facility] as she may need arthrectomy. Scheduled for May 06, 2020. 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 (2) Femoral-popliteal bypass graft occlusion, right: Qualifiers: Encounter type: subsequent encounter Qualified Code(s): T82.898D - Other specified complication of vascular prosthetic devices, implants and grafts, subsequent encounter Code(s): T82.898A - Other specified complication of vascular prosthetic devices, implants and grafts, initial encounter Status: Acute Assessment and Plan: She is to follow-up with her vascular surgeon. DS: Summary Hospital Course Hospital Course: 59-year-old with a history of peripheral artery disease with history of right fem-pop bypass surgery; diabetes mellitus on insulin, tobacco abuse. presented with 15 hour history of chest pain on 04/14/2020, found to have inferior ST-elevation [place]. On coronary angiogram, she was found to have totally occluded distal RCA which is infarct-related vessel; high-grade stenosis in the mid RCA, LVEF about 60% with inferior wall severe hypokinesis to akinesis. She underwent primary PCI/TAMIKA x1 distal RCA with voodoo of flow by Dr Cruz on 04/14/2020. she was also found to have an 80% stenosis in the mid LAD which will be addressed in a staged fashion. She was started on aspirin and Brilinta, beta-rebecca and lisinopril. She had chest pain overnight after her procedure. Nitroglycerin paste was applied and she was pain-free. EKGs were unchanged. Troponin trended down. Peak was greater than 80. ECHO:Normal left ventricular size with mild concentric left ventricular hypertrophy. The overall left ventricular function is good with an estimated ejection fraction 55-60%. However the basal inferior septal segment appears akinetic. Diastolic dysfunction, grade 1, is present. The average global longitudinal strain is-60% which is mildly low suggesting a degree of systolic dysfunction. Mild mitral valve regurgitation. No pulmonary hypertension, estimated pulmonary arterial systolic pressure is 28 mmHg. She was continued on dual anti-platelet therapy with aspirin and ticagrelor; metoprolol tartrate and atorvastatin. Lisinopril was changed to losartan as she has experienced a cough with lisinopril in the past. Risk factor modification including complete smoking cessation was discussed.. States that she vapes with no nicotine. Intervention on her mid LAD is scheduled for May 06, 2020. She was given directions and instructions. Discharged home 04/16/2020 in stable and pain-free condition. This document was completed by using [employer] Direct speech recognition software, therefore, checkout supervisor variances may occur.
[2020-04-20 19:25] LABS: Hepatitis C RNA, Quant PCR <15 IU/mL
== END 2020-04-16 14:00 | disposition home or self-care (01) | DRG 247 ==
LOC: ANHED 13:12 → ANHICU 13:16 → ANHIMU 04-15 15:00
PROVIDERS: Internal Medicine; Internal Medicine Cardiovascular Disease; Nurse Practitioner Adult Health; Admitting Provider Internal Medicine Cardiovascular Disease; Emergency Provider Emergency Medicine; PCP Internal Medicine Geriatric Medicine; Visit Provider Internal Medicine Cardiovascular Disease
PROC: 4A023N7 Measurement of Cardiac Sampling and Pressure, Left Heart, Percutaneous Approach (ICD-10-PCS; CPT 93452; principal; 2020-04-14 13:30)
PROC: 027034Z Dilation of Coronary Artery, One Artery with Drug-eluting Intraluminal Device, Percutaneous Approach (ICD-10-PCS; 2020-04-14 13:30)
DX: I21.19 ST elevation (STEMI) myocardial infarction involving other coronary artery of inferior wall (principal); E78.00 Pure hypercholesterolemia, unspecified; I25.10 Atherosclerotic heart disease of native coronary artery without angina pectoris; K21.9 Gastro-esophageal reflux disease without esophagitis; E11.9 Type 2 diabetes mellitus without complications; Z79.4 Long term (current) use of insulin; R11.0 Nausea; Z72.0 Tobacco use
CPT/HCPCS: 36415; 80048; 80053; 80061; 84484; 85025; 85610; 85730; 86703; 86850; 86900; 86901; 87340; 87522; 93005; 93306; 93458; 99291; A9270; C1725; C1769; C1874; C1887; C1894; C9606; G0432; J1644; J1815; J2250; J2405; J3010; J7030; J7050

== ENCOUNTER 2020-05-03 07:57 | Outpatient (CLI) | payer OTHER, SELFPAY ==
[2020-05-03 08:45] LABS: Basophils Absolute Auto 0.1 K/mm3 (0.0-0.1); Basophils Percent Auto 0.8 % (0.2-1.2); Eosinophils Absolute Auto 0.4 K/mm3 (0-0.3); Eosinophils Percent Auto 3.3 % (0-4.4); Hematocrit 38.2 % (37.0-47.0); Hemoglobin 12.4 g/dL (12.0-15.0); Immature Granulocyte Absolute 0.07 K/mm3 (0.00-0.031); Immature Granulocyte Percent A 0.6 % (0-0.5); Lymphocytes Absolute Auto 2.58 K/mm3 (0.9-3.2); Lymphocytes Percent Auto 22.7 % (18.3-44.2); Mean Corpuscular HGB Conc 32.5 g/dl (32-36); Mean Corpuscular Hemoglobin 29.5 pg (26-34); Mean Corpuscular Volume 90.7 fl (80-100); Mean Platelet Volume 11.1 fl (7.4-10.4); Monocytes Absolute Auto 0.8 K/mm3 (0.1-0.6); Monocytes Percent Auto 7.3 % (2.6-8.5); Neutrophils Absolute Auto 7.4 K/mm3 (1.3-6.7); Neutrophils Percent Auto 65.3 % (45.5-73.1); Platelet Count Result 318 k/mm3 (150-375); Red Blood Count 4.21 M/mm3 (4.2-5.4); Red Cell Distribution Width 13.2 % (11.5-14.5); White Blood Count 11.4 K/mm3 (4.5-10.0)
[2020-05-03 09:03] LABS: Alanine Aminotransferase 12 U/L (4-35); Alkaline Phosphatase 122 U/L (38-126); Anion Gap 13.1 mmol/L (7-16); Aspartate Amino Transferase 16 U/L (14-36); Bilirubin,Total 0.3 mg/dL (0.2-1.3); Blood Urea Nitrogen 17 mg/dL (7-17); Calcium 8.6 mg/dL (8.4-10.2); Carbon Dioxide 24 mmol/L (22-30); Chloride 106 mmol/L (98-107); Estimated Glomerular Filt Rate > 60; Glucose 230 mg/dL (65-105); Potassium 4.1 mmol/L (3.4-5.0); Sodium 139 mmol/L (137-145)
== END 2020-05-03 07:58 | disposition home or self-care (01) ==
PROVIDERS: PCP Internal Medicine Geriatric Medicine; Visit Provider Internal Medicine Cardiovascular Disease
DX: Z01.812 Encounter for preprocedural laboratory examination (principal)
CPT/HCPCS: 36415; 80053; 85025

== ENCOUNTER 2020-11-01 16:30 | Outpatient (RCR) | payer OTHER, SELFPAY ==
[2020-08-24 15:32] VITALS: BP 116/60; PULSE 73; RESP 16; TEMP 36.8; O2SAT 99
--- NOTE | 2020-10-04 14:45 | PCCPR ---
Pt called to inform of absence. 10/04/2020
--- NOTE | 2020-11-08 14:25 | PCCPR ---
Sintia request to discharge one week before her schedule time, due to work schedule and obligations.
== END 2020-11-08 14:26 | disposition home or self-care (01) ==
LOC: ANHCPREHAB 16:30
PROVIDERS: PCP Internal Medicine Geriatric Medicine; Visit Provider Internal Medicine Cardiovascular Disease
DX: Z95.5 Presence of coronary angioplasty implant and graft (principal)
CPT/HCPCS: 93798

== ENCOUNTER → 2021-02-24 11:15 | Outpatient (CLI) | payer OTHER, SELFPAY ==
--- NOTE | ~2021-02-24 | MM_ITS ---
EXAMINATION: MM screening [facility] BI w sabrina HISTORY: Screening mammogram TECHNIQUE: Craniocaudal and mediolateral oblique 3-D tomosynthesis images were obtained and synthetic 2-D images were generated. CAD analysis was submitted and interpreted. COMPARISON: No prior mammogram is available for comparison at this institution. BREAST PARENCHYMAL COMPOSITION: There are scattered areas of fibroglandular density. FINDINGS: Bilateral benign small intramammary lymph nodes. There is no evidence of suspicious mass, c alcification, or architectural distortion to suggest malignancy in either breast. There has been no s uspicious interval change. IMPRESSION: 1. No mammographic evidence of malignancy. 2. Recommend routine screening mammography in one year. BI-RADS Category 2: Benign finding(s). Reviewed, dictated and finalized at location A.
== END ==
PROVIDERS: PCP Internal Medicine Geriatric Medicine; Visit Provider Internal Medicine Geriatric Medicine
DX: Z12.31 Encounter for screening mammogram for malignant neoplasm of breast (principal)
CPT/HCPCS: 77063; 77067

== ENCOUNTER → 2021-12-27 13:17 | Outpatient (CLI) | payer BC, SELFPAY ==
--- NOTE | ~2021-12-27 | DEXA_ITS ---
Bone Density Report Name: DARSHAN DELGADO Age: 61 Sex: Female Ethnicity: White Date of : 1960 Indication: postmenopausal; screening for osteoporosis; height loss; Referring Provider: Ana Cristina, Becky Study: Bone densitometry was performed. Exam Date: December 27, 2021 Accession number: [id number] Bone Density: Region BMD T-score Z-score Classification AP Spine (L1-L4) 0.955 -0.8 0.5 Normal Femoral Neck (Left) 0.662 -1.7 -0.4 Osteopenia Total Hip (Left) 0.940 0.0 0.9 Normal Femoral Neck (Right) 0.671 -1.6 -0.3 Osteopenia Total Hip (Right) 0.873 -0.6 0.3 Normal Total Hip Mean 0.907 -0.3 0.6 Normal World Health Organization criteria for BMD impression classify patients as: Normal (T-score at or above -1.0), Osteopenia (T-score between -1.0 and -2.5), or Osteoporosis (T-score at or below -2.5). 10-year Fracture Risk(1): Major Osteoporotic Fracture 7.9% Hip Fracture 1.2% Reported Risk Factors: [place] (), Neck BMD=0.671, BMI=31.8, smoking (1) FRAX(R) Version 3.08. Fracture probability calculated for an untreated patient. Fracture probability may be lower if the patient has received treatment. Clinical Information Provided by Patient: Smokes Patient maximum height was 68.5 Menopause Age: 52 Drinks caffeinated beverages Onset of menses at age 18 Number of children 2 Impression: The patient has low bone mass, based on the Left Femoral Neck T-score. The patient has an estimated ten-year risk of hip fracture of 1.2% and an estimated ten-year risk of major fracture of 7.9%, based on the WHO FRAX algorithm. The patient has risk factors, including: smoking. Discussion: BONE DENSITY IS LOW AT ONE OR MORE SKELETAL SITES. This patient's lowest T-score is low at one or more skeletal sites. It meets the World Health Organization's (WHO) criteria for ?low bone mass? (T-score between -1.0 and -2.5). The patient's 10-year risk of fracture as calculated by FRAX is less than the threshold where pharmacological therapy is recommended by the National Osteoporosis Foundation (NOF). However, all treatment decisions require clinical judgment and consideration of individual patient factors, including patient preferences, comorbidities, previous drug use, risk factors not captured in the FRAX model (e.g., frailty, falls, vitamin D deficiency, increased bone turnover, interval significant decline in bone density) and possible under or overestimation of fracture risk by FRAX. The patient should follow a healthful lifestyle (good nutrition with adequate calcium and vitamin D, and appropriate weight-bearing exercise). Follow-Up: Consider repeating this study in 2 to 3 years to reassess this patient's status, or sooner if there is some new clinical indication. Reported by: [facility] on 12/27/2021 1:39
== END ==
PROVIDERS: PCP Internal Medicine Geriatric Medicine; Visit Provider Internal Medicine Geriatric Medicine
DX: Z78.0 Asymptomatic menopausal state (principal); M85.852 Other specified disorders of bone density and structure, left thigh; M85.851 Other specified disorders of bone density and structure, right thigh
CPT/HCPCS: 77080

== ENCOUNTER → 2022-10-03 11:20 | Outpatient (CLI) | payer BC, SELFPAY ==
--- NOTE | ~2022-10-03 | MM_ITS ---
EXAMINATION: MM screening [facility] BI w sabrina HISTORY: Screening mammogram TECHNIQUE: Craniocaudal and mediolateral oblique 3-D tomosynthesis images were obtained and synthetic 2-D images were generated. CAD analysis was submitted and interpreted. COMPARISON: 02/24/2021, 07/29/2019, 02/05/2018 BREAST PARENCHYMAL COMPOSITION: There are scattered areas of fibroglandular density. FINDINGS: No suspicious mass, calcification, or architectural distortion are identified in either ori ast to suggest malignancy. There has been no suspicious interval change. IMPRESSION: 1. No mammographic evidence of malignancy. 2. Recommend routine screening mammography in one year. BI-RADS Category 1: Negative Reviewed, dictated and finalized at location A. [employer]
== END ==
PROVIDERS: PCP Internal Medicine Geriatric Medicine; Visit Provider Internal Medicine Geriatric Medicine
DX: Z12.31 Encounter for screening mammogram for malignant neoplasm of breast (principal)
CPT/HCPCS: 77063; 77067

== ENCOUNTER 2024-07-15 08:10 | Outpatient (CLI) | payer BC, SELFPAY ==
--- NOTE | ~2024-07-15 | MM_ITS ---
EXAMINATION: MM screening [facility] BI w sabrina HISTORY: Screening TECHNIQUE: Craniocaudal and mediolateral oblique 3-D tomosynthesis images were obtained and synthetic 2-D images were generated. CAD analysis was submitted and interpreted. COMPARISON: Comparison to multiple prior studies sequentially, with oldest reviewed study dated 08/31. BREAST PARENCHYMAL COMPOSITION: Not dense: There are scattered areas of fibroglandular density. FINDINGS: There is no evidence of suspicious mass, calcification, or architectural distortion to sugg est malignancy in either breast. There has been no suspicious interval change. IMPRESSION: 1. No mammographic evidence of malignancy. 2. Recommend routine screening mammography in one year. BI-RADS Category 1: Negative Reviewed, dictated and finalized at location B.
== END 2024-07-15 08:11 | disposition home or self-care (01) ==
PROVIDERS: PCP Internal Medicine Geriatric Medicine; Visit Provider Internal Medicine Geriatric Medicine
DX: Z12.31 Encounter for screening mammogram for malignant neoplasm of breast (principal)
CPT/HCPCS: 77063; 77067

== ENCOUNTER 2024-09-16 08:25 | Outpatient (CLI) | payer BC, SELFPAY ==
[2024-09-16 09:29] LABS: Cholesterol 138 mg/dL (0-200); HDL Direct 38 mg/dL; Triglycerides 289 mg/dL (<150)
[2024-09-16 09:40] LABS: LDL Cholesterol Direct 56 mg/dL
== END 2024-09-16 08:26 | disposition home or self-care (01) ==
LOC: ANHLAB 08:28
PROVIDERS: PCP Internal Medicine Geriatric Medicine; Visit Provider Internal Medicine Cardiovascular Disease
DX: I25.10 Atherosclerotic heart disease of native coronary artery without angina pectoris (principal)
CPT/HCPCS: 36415; 80061